=== PATIENT | female | born 1995 | race Caucasian/White ===

== ENCOUNTER 2019-03-16 20:09 | Inpatient (IN) | payer OTHER ==
[~2019-03-16] VITALS: Ht 165.1 cm; Wt 63.5 kg
[2019-03-16 20:43] VITALS: Ht 165.1 cm; Wt 63.5 kg
--- NOTE | 2019-03-16 21:30 | NUR ---
PT BIB MOTHER IN LAW WITH C/O BODYAHCES, NAUSEA, AND HEADACHE X1 DAY. PT STATED SHE IS 30 WEEKS . NO VOMITING NOTED AT THIS TIME. DENIES ANY VAGINAL BLEEDING/DISCHARGE, DENIES ANY VISION CHANGES. PT AMBULATED WITH A STEADY GAIT TO RESTROOM AND BACK TO [facility] TO OBTAIN URINE SAMPLE. PT IS AAOX4, NO NUERO DEFICITS, NO DISTRESS NOTED, RESP E/U, SKIN INTACT PINK WARM AND NORMAL MOISTURE. PT GOWNED, PLACED IN FULL CM, MSE COMPLETED BY MD. MOTHER IN LAW AT THE BEDSIDE. WILL CONT TO MONITOR.
--- NOTE | 2019-03-16 21:38 | NUR ---
IV FLUIDS INFUSING NO INFILTRATION NOTED OR PAIN TO SITE. PT ON FULL CM, NSR, VSS. WILL CONT TO MONITOR.
[2019-03-16 21:40] LABS: BASOPHIL % 0.9 % (0-2); PLATELET COUNT 337 x10^3mcL (130-400); RED CELL DISTRIBUTION WIDTH 12.8 % (11.5-14.5)
[2019-03-16 21:43] LABS: microscopic required? YES; urine erythrocyte NEGATIVE (NEGATIVE)
[2019-03-16 21:50] LABS: CALCIUM 8.4 mg/dL (8.5-10.1); CARBON DIOXIDE 23.2 mmol/L (21-32); CHLORIDE SERUM 100 mmol/L (98-107); CREATININE SERUM 0.5 mg/dL (0.6-1.0); GFR1 > 60 mL/min; GLUCOSE SERUM 100 mg/dL (74-106); POTASSIUM SERUM 3.8 mmol/L (3.5-5.1); SODIUM SERUM 133 mmol/L (136-145)
[2019-03-16 21:55] LABS: ALKALINE PHOSPHATASE 87 U/L (46-116); ALT/SGPT 13 U/L (14-59); AST/SGOT 13 U/L (15-37); BILIRUBIN TOTAL 0.29 mg/dL (0.20-1.00); TOTAL PROTEIN, SERUM 7.3 g/dL (6.4-8.2)
[2019-03-16 21:57] LABS: ALBUMIN 2.6 g/dL (3.4-5.0)
--- NOTE | 2019-03-16 22:28 | NUR ---
DR RANDOLPH AT THE BEDSIDE DISCUSSING PLAN OF CARE. PT WILL BE ADMITTED TO HOSPITAL. PT AWARE.
--- NOTE | 2019-03-16 23:31 | NUR ---
GAVE REPORT TO MARNIE ALBA, WHO WILL ASSUME FURTHER CARE OF PATIENT.
[2019-03-17 00:18] VITALS: BP 106/46
--- NOTE | 2019-03-17 00:34 | NUR ---
RECEIVED PT FROM ER, PT ADMIT FOR COMPLICATED PYELONEPHRITIS, PT IS A/O X4, VERBAL RESPONSIVE, LUNG SOUND CLEAR BILATERAL,NO COUGH, NO SOB, PT DENY ANY CHEST PAIN OR DISCOMFORT, BOWEL SOUND PRESENT ALL 4 QUADRANTS, NO TENDER. PEDAL PULSE PRESENT BOTH FEET, NO EDEMA, PT C/O BODY ACHE, 7/10, IV AT LEFT AC, NO LEAKING, NO INFILTRATION. ALL ADLS ASSIST, ALL NEED MET, CALL LIGHT IN REACH, WILL CONTINUE TO MONITOR.
[2019-03-17 00:43] LABS: AMPHETAMINE QUAL UR NONE DETECTED (See below)
--- NOTE | 2019-03-17 00:45 | NUR ---
PT STILL AWAKE AT THIS TIME, REASSESSED PAIN LEVEL , PT CALIMED BEARABLE AT THIS TIME /10, PT JUST WANT TO REST/SLEEP. AT BEDSIDE VERY SUPPORTIVE OF PATIENT'S CURRENT PLAN OF CARE. PLACED CALL LIGHT WITHIN REACH, INSTRUCTED TO CALL FOR ANY ASSISTANCE NEEDED AND VERBALIZED UNDERSTANDING.
--- NOTE | 2019-03-17 04:58 | NUR ---
CONTINUES ON IVF NS AT 100ML/HR VIA PERIPHERAL LINE , TOLERATING WELL. ABLE TO REPOSITION SELF IN BED. CALL LIGHT WITHIN REACH, BED LOCKED AND IN LOWEST POSITION FOR SAFETY.
--- NOTE | 2019-03-17 06:11 | NUR ---
RESTINGG QUIETLY IN BED. DENIES ANY PAIN/DISCOMFORTT AT THIS TIME. EXTRA BLANKETS PROVIDED PER PT'S REQUEST. ALL NEEDS ATTEDNED.
[2019-03-17 06:21] VITALS: BP 96/51
--- NOTE | 2019-03-17 07:05 | NUR ---
RECEIVED PT FROM MICHEL RN. PT AA/OX4 LAYING IN BED. DENIES PAIN AT THIS TIME. NO N/V. NO SOB ON ROOM AIR. DENIES PAIN WITH URINATION. C/O CHILLS. TEMP 98.4F. CALM/COOPERATIVE. DENIES ABD. PAIN. IV WNL TO LAC, PATENT AND FLUSHES WELL. IVF FLOWING. BED IN LOW POSITION. CALL LIGHT WITHIN REACH. [id number] AT BEDSIDE. INSTRUCTED TO USE CALL LIGHT TO CALL FOR ASSISTANCE PRN. VERBALIZED UNDERSTANDING. WILL CONT. TO MONITOR.
[2019-03-17 07:23] VITALS: BP 109/69
[2019-03-17 08:12] LABS: CALCIUM 7.7 mg/dL (8.5-10.1); CHLORIDE SERUM 107 mmol/L (98-107); CREATININE SERUM 0.5 mg/dL (0.6-1.0); GFR1 > 60 mL/min; GLUCOSE SERUM 79 mg/dL (74-106); MAGNESIUM 1.5 mg/dL (1.8-2.4); PHOSPHOROUS 3.2 mg/dL (2.5-4.9); POTASSIUM SERUM 4.3 mmol/L (3.5-5.1); SODIUM SERUM 139 mmol/L (136-145)
[2019-03-17 08:29] LABS: BASOPHIL % 0.2 % (0-2); PLATELET COUNT 334 x10^3mcL (130-400); RED CELL DISTRIBUTION WIDTH 13.2 % (11.5-14.5)
--- NOTE | 2019-03-17 09:45 | NUR ---
PT AMBULATORY TO RESTROOM GAIT STEADY. VOID X2. URINE OUTPUT 850CC. CLOUDY/YELLOW. DENIES PAIN WITH URINATION. DENIES PAIN AT THIS TIME. NO N/V. NO S/S OF ACUTE DISTRESS. IV NS BOLUS RUNNING TO LAC, IV SITE WNL. DENIES SOB ON ROOM AIR. DENIES CHEST PAIN. CALM/COOPERATIVE. LAYING IN BED. MOTHER IN LAW AT BEDSIDE. WILL CONT. TO MONITOR.
[2019-03-17 10:16] VITALS: BP 102/51
--- NOTE | 2019-03-17 10:16 | NUR ---
BOLUS COMPLETE, BP 102/51, MAP 65, TEMP 102.4 ORAL. COOLING MEASURES IN PLACE. TYLENOL GIVEN, OKAY TO GIVE PER PHARMACY. DENIES CHILLS AT THIS TIME. NO N/V. NO S/S OF ACUTE DISTRESS. AA/OX4. CALM/COOPERATIVE. HR 114. RR 18. O2 SAT 96% ON ROOM AIR. DENIES PAIN. IV WNL TO LAC, IV FLUIDS FLOWING. BED IN LOW POSITION. CALL LIGHT WITHIN REACH. WILL CONT. TO MONITOR.
--- NOTE | 2019-03-17 12:58 | NUR ---
PT LAYING IN BED. COMPLAINT OF SWELLING TO LUE, IV SITE WNL, FLUSHING WELL. IV SALINE LOCKED. IV INSERTED TO RH, 22 GAUGE. PATENT AND FLUSHES WELL. IVF FLOWING. DENIES N/V. NO CHILLS. NO FEVER AT THIS TIME. SISTER AT BEDSIDE. PT DENIES DIFFICULTY/PAIN WITH URINATION. AMBULATORY WITH FULL ROM. GAIT STEADY. DENIES ABD. PAIN. AA/OX4. NO REA. NO DIZZINESS. CALM/COOPERATIVE. BED IN LOW POSITION. CALL LIGHT WITHIN REACH. WILL CONT. TO MONITOR.
[2019-03-17 14:29] VITALS: BP 93/49
[2019-03-17 14:30] VITALS: BP 102/51
--- NOTE | 2019-03-17 16:00 | NUR ---
PT BEING DISCHARGED TO [facility]. VS STABLE: BP 96/54 (65), HR 101, TEMP 98.1F, RR 14, O2 SAT 98%. DENIES SOB ON ROOM AIR. DENIES PAIN. DENIES VAGINAL BLEEDING/DISCHARGE. TAKEN BY CHRISTA. IV WNL TO , 22 GAUGE. PATENT AND FLUSHES WELL. SALINE LOCKED. BELONGINGS WITH PATIENT. ENDORSED TO [facility] WITH BEDSIDE REPORT GIVEN AT THIS TIME. TRANSPORTED BY [facility] MATERNAL TRANSPORT TEAM. BELONGINGS WITH PATIENT. PT LEFT FLOOR FREE OF ANY S/S OF ACUTE DISTRESS.
== END 2019-03-17 16:00 | disposition short-term general hospital (02) | DRG 566 ==
LOC: ED 20:09 → MU 23:08
PROVIDERS: Student in an Organized Health Care Education/Training Program; ADMIT Internal Medicine
DX: O98.813 Other maternal infectious and parasitic diseases complicating pregnancy, third trimester (principal); E83.51 Hypocalcemia; E87.1 Hypo-osmolality and hyponatremia; E86.0 Dehydration; O23.03 Infections of kidney in pregnancy, third trimester; O25.13 Malnutrition in pregnancy, third trimester; Z3A.30 30 weeks gestation of pregnancy; O99.013 Anemia complicating pregnancy, third trimester; O99.283 Endocrine, nutritional and metabolic diseases complicating pregnancy, third trimester
CPT/HCPCS: G0378; J0696; J7030; J7060; Q0092